=== PATIENT | male | born 1990 | race Caucasian/White ===

== ENCOUNTER 2019-02-18 14:35 | Emergency (ER) | payer MEDICAID ==
[~2019-02-18] VITALS: Ht 167.6 cm; Wt 90.4 kg
[2019-02-18 14:36] VITALS: Ht 167.6 cm; Wt 90.4 kg
[2019-02-18] MEDS ORDERED: SOD CHLORIDE 0.9% 1,000 ML IV STA (17:37)
[2019-02-18] MEDS ORDERED: ONDANSETRON 4 MG INJ IV STA (17:37)
--- NOTE | 2019-02-18 17:50 | ERD ---
ER Documentation Chief Complaint Chief Complaint chest pain today after using inhaling meth yesterday HPI 28-year-old man complains of anxiety, palpitations, chest pain shortly after using methamphetamine yesterday and today prior to arrival. Patient denies pain at rest or pain in the ER but did have some pain prior to arrival he states the pain was sharp nonexertional nonradiating associated with palpitations. He denies cough, no hemoptysis, no fevers or chills, no vomiting or diarrhea. Patient denies psychiatric history and denies suicidal homicidal ideation ROS All systems reviewed and are negative except as per history of present illness. Medications Home Meds No Active Prescriptions or Reported Meds Allergies Allergies: Coded Allergies: No Known Allergy (Unverified , 02/18/19) PMhx/Soc Medical and Surgical Hx: pt denies Medical Hx, pt denies Surgical Hx Hx Alcohol Use: No Hx Substance Use: No Hx Tobacco Use: No Smoking Status: Never smoker FmHx Family History: No diabetes Physical Exam Vitals Vital Signs Date Temp Pulse Resp B/P (MAP) Pulse Ox O2 O2 Flow FiO2 Time Delivery Rate 02/18/19 98.0 94 16 142/93 100 Room Air 19:41 (109) 02/18/19 98.0 96 16 154/90 100 Room Air 18:42 (111) 02/18/19 98.0 95 25 153/100 100 Room Air 17:44 (117) 02/18/19 98.0 106 25 158/103 100 Room Air 16:50 (121) 02/18/19 98.0 115 18 182/92 98 14:36 (122) Physical Exam Const: No acute distress, appears anxious, afebrile, no apparent distress Head: Atraumatic Eyes: Normal Conjunctiva ENT: Normal External Ears, Nose and Mouth. Neck: Full range of motion. No meningismus. Resp: Clear to auscultation bilaterally Cardio: Tachycardic and regular Abd: Soft, non tender, non distended. Normal bowel sounds Skin: No petechiae or rashes Back: No midline or flank tenderness Ext: No cyanosis, or edema Neur: Awake and alert x3, no focal deficits or facial asymmetry, pupils equal round reactive to light Psych: Normal Mood and Affect Result Diagram: 02/18/19 1645 02/18/19 1645 Results 24 hrs Laboratory Tests Test 02/18/19 16:45 White Blood Count 10.8 10^3/ul Red Blood Count 4.94 10^6/ul Hemoglobin 15.4 g/dl Hematocrit 45.9 % Mean Corpuscular Volume 92.9 fl Mean Corpuscular Hemoglobin 31.2 pg Mean Corpuscular Hemoglobin Concent 33.6 g/dl Red Cell Distribution Width 13.2 % Platelet Count 343 10^3/UL Mean Platelet Volume 10.3 fl Immature Granulocytes % 0.600 % Neutrophils % 65.5 % Lymphocytes % 23.1 % Monocytes % 9.3 % Eosinophils % 0.6 % Basophils % 0.9 % Nucleated Red Blood Cells % 0.0 /100WBC Immature Granulocytes # 0.060 10^3/ul Neutrophils # 7.1 10^3/ul Lymphocytes # 2.5 10^3/ul Monocytes # 1.0 10^3/ul Eosinophils # 0.1 10^3/ul Basophils # 0.1 10^3/ul Nucleated Red Blood Cells # 0.0 10^3/ul Sodium Level 142 mmol/L Potassium Level 3.6 mmol/L Chloride Level 100 mmol/L Carbon Dioxide Level 28 mmol/L Anion Gap 14 Blood Urea Nitrogen 10 mg/dl Creatinine 0.61 mg/dl Est Glomerular Filtrat Rate mL/min > 60 mL/min Glucose Level 134 mg/dl Calcium Level 9.6 mg/dl Total Bilirubin 0.4 mg/dl Direct Bilirubin 0.00 mg/dl Indirect Bilirubin 0.4 mg/dl Aspartate Amino Transf (AST/SGOT) 135 IU/L Alanine Aminotransferase (ALT/SGPT) 376 IU/L Alkaline Phosphatase 82 IU/L Troponin I < 0.012 ng/ml Total Protein 9.2 g/dl Albumin 5.0 g/dl Globulin 4.20 g/dl Albumin/Globulin Ratio 1.19 Lipase 61 U/L Current Medications Medications Dose Sig/Nikkie Start Time Status Last (Trade) Ordered Route PRN Stop Time Admin Dose Reason Admin Lorazepam 1 mg ONCE ONCE 02/18/19 DC 02/18/19 (Ativan) IV 18:00 02/18/19 17:52 18:01 Sodium 1,000 ml @ Q1H STAT 02/18/19 DC 02/18/19 Chloride 1,000 mls/hr IV 17:37 02/18/19 17:52 18:36 Ondansetron 4 mg ONCE STAT 02/18/19 DC 02/18/19 HCl (Zofran IV 17:37 02/18/19 17:53 Inj) 17:40 Procedures/[facility] IV line was established patient was placed on rn cardiac cath rhythm strip revealed a sinus tachycardia at 110 bpm with upright P and T waves. Patient was afebrile EKG performed, read by me revealed a sinus tachycardia at 102 bpm, left axis deviation, right ventricular conduction delay QRS duration 112 ms, no concerning ST elevations or depressions noted One AP view of the chest performed, read by me reveals no acute infiltrates, normal mediastinum, sharp costophrenic and cardiac borders, no air under the diaphragm. Otherwise unremarkable chest x-ray. I administered 1 L normal saline IV, Zofran 4 mg IV, lorazepam 1 mg IV x1 CBC and electrolytes were normal, liver function tests showed mild transaminitis, troponin was negative. Patient felt much better after above therapy and tachycardia resolved, patient's blood pressure also improved and he is asymptomatic at this time. Reassurance a nd recommendations were provided to the patient and his mother who was at the bedside. Differential diagnoses considered, included but not limited to acute coronary syndrome, pulmonary embolism, aortic dissection, abdominal aortic aneurysm, sepsis, stroke, meningitis, encephalitis, pneumonia, appendicitis, cholecystitis, bowel obstruction, pyelonephritis, nephrolithiasis, cystitis, as well as metabolic, hematologic, and electrolyte abnormalities. As well as abscess, cellulitis, fractures, and dislocations. Patient feels much better at this time, and vital signs are normal, symptoms have improved. I did give strict instructions to return to the ED if symptoms continue or worsen, patient will otherwise follow-up with primary care physician. Patient understood instructions and agreed to plan. Disclaimer: Inadvertent spelling and grammatical errors are likely due to EHR/dictation software use and do not reflect on the overall quality of patient care. Also, please note that the electronic time recorded on this note does not necessarily reflect the actual time of the patient encounter. Departure Diagnosis: Primary Impression: Methamphetamine abuse Condition: Good VALENTINA PARKINSON MD Feb 18, 2019 17:50
[2019-02-18] MEDS ORDERED: LORAZEPAM 2 MG INJ IV ONE (18:00)
[2019-02-18 19:41] VITALS: BP 142/93; PULSE 94; RESP 16
== END 2019-02-18 19:53 | disposition home or self-care (01) ==
LOC: E/R 14:35
DX: F15.10 Other stimulant abuse, uncomplicated (principal); R07.9 Chest pain, unspecified
CPT/HCPCS: 36415; 71045; 80053; 83690; 84484; 85025; 93005; 96374; 96375; J2060; J2405; J7030; Z7502

== ENCOUNTER → 2019-02-20 | Emergency (ER) | payer MEDICAID ==
[~2019-02-20] VITALS: Ht 162.6 cm; Wt 89.9 kg
[~2019-02-20] MED LIST: KETOROLAC 30 MG INJ IV STA; LORAZEPAM 1 MG TAB PO ONE
[2019-02-20 15:59] VITALS: Ht 162.6 cm; Wt 89.9 kg
--- NOTE | 2019-02-20 20:08 | ERD ---
ER Documentation Chief Complaint Chief Complaint pressure like pain @ left area radiating to left arm since yesterday HPI 28-year-old male presenting for intermittent palpitations as well as right-sided mid back pain, worse with deep inspiration and movement, aching, 7 out of 10, nonradiating. Of note, the patient was here 2 days ago and he used methamphetamines for the first time, having a bad reaction. He denies any medical history. No cough, hemoptysis, dysuria, hematuria, fever or chills. Denies any drug use after 2 days ago. ROS All systems reviewed and are negative except as per history of present illness. Medications Home Meds No Active Prescriptions or Reported Meds Allergies Allergies: Coded Allergies: No Known Allergy (Unverified , 02/18/19) PMhx/Soc Medical and Surgical Hx: pt denies Medical Hx, pt denies Surgical Hx Hx Alcohol Use: Yes Hx Substance Use: Yes (meth) Hx Tobacco Use: No Smoking Status: Never smoker FmHx Family History: No diabetes Physical Exam Vitals Vital Signs Date Temp Pulse Resp B/P (MAP) Pulse Ox O2 O2 Flow FiO2 Time Delivery Rate 02/20/19 98.8 78 19 135/87 100 Room Air 19:00 (103) 02/20/19 98.8 96 19 162/84 97 15:59 (110) Physical Exam Const: No acute distress Head: Atraumatic Eyes: Normal Conjunctiva ENT: Normal External Ears, Nose and Mouth. Neck: Full range of motion. No meningismus. Resp: Clear to auscultation bilaterally Cardio: Regular rate and rhythm, no murmurs. 2+ distal pulses in all 4 extremities Abd: Soft, non tender, non distended. Normal bowel sounds Skin: No petechiae or rashes Back: No midline or flank tenderness. Right thoracic paraspinal muscle tenderness Ext: No cyanosis, or edema Neur: Awake and alert, strength and sensations intact in all 4 extremities. Psych: Normal Mood and Affect Result Diagram: 02/20/19185402/20/191854 Results 24 hrs Laboratory Tests Test 02/20/19 18:55 White Blood Count 9.0 10^3/ul Red Blood Count 4.73 10^6/ul Hemoglobin 14.4 g/dl Hematocrit 44.2 % Mean Corpuscular Volume 93.4 fl Mean Corpuscular Hemoglobin 30.4 pg Mean Corpuscular Hemoglobin Concent 32.6 g/dl Red Cell Distribution Width 12.3 % Platelet Count 297 10^3/UL Mean Platelet Volume 10.1 fl Immature Granulocytes % 0.200 % Neutrophils % 49.5 % Lymphocytes % 30.8 % Monocytes % 10.2 % Eosinophils % 8.4 % Basophils % 0.9 % Nucleated Red Blood Cells % 0.0 /100WBC Immature Granulocytes # 0.020 10^3/ul Neutrophils # 4.5 10^3/ul Lymphocytes # 2.8 10^3/ul Monocytes # 0.9 10^3/ul Eosinophils # 0.8 10^3/ul Basophils # 0.1 10^3/ul Nucleated Red Blood Cells # 0.0 10^3/ul Sodium Level 142 mmol/L Potassium Level 4.0 mmol/L Chloride Level 101 mmol/L Carbon Dioxide Level 31 mmol/L Anion Gap 10 Blood Urea Nitrogen 14 mg/dl Creatinine 0.77 mg/dl Est Glomerular Filtrat Rate mL/min > 60 mL/min Glucose Level 110 mg/dl Calcium Level 9.7 mg/dl Troponin I < 0.012 ng/ml Current Medications Medications Dose Sig/Nikkie Start Time Status Last (Trade) Ordered Route PRN Stop Time Admin Dose Reason Admin Ketorolac 30 mg ONCE STAT 02/20/19 DC Tromethamine IV 20:01 (Toradol) 02/20/19 20:02 Lorazepam 1 mg ONCE ONCE 02/20/19 (Ativan) PO 20:30 02/20/19 20:31 Procedures/[facility] EMERGENT LABS AND DIAGNOSTIC STUDIES: Lab Results above were reviewed and interpreted by me. CBC: no anemia or evidence of infection CMP: No evidence of clinically significant electrolyte abnormality, acidosis, renal failure, hypoglycemia Troponin within normal limits, not indicative of cardiac ischemia 12-lead EKG was interpreted by Vilma Antoine MD: Normal Sinus Rhythm with ventricular rate of 75 beats per minute Incomplete right bundle branch block No acute ST or T wave changes suggestive of acute ischemia or STEMI. Radiology Results as interpreted by Radiology below were reviewed by Moe Antoine MD: Chest x-ray shows no acute abnormalities Initial Nursing notes reviewed. Previous Medical Records requested via the Electronic Health Record. EMERGENCY DEPARTMENT COURSE / MEDICAL DECISION MAKING: Patient is presenting with palpitations, likely secondary to his recent methamphetamine use. Vitals are unremarkable. He also has right-sided thoracic back pain that seems to be musculoskeletal on exam. I doubt pulmonary embolism, pneumothorax, pneumonia, acute surgical abdomen, pyelonephritis. Labs do not show any significant abnormalities. Chest x-ray unremarkable. Doubt acute coronary syndrome or aortic dissection. Patient is stable for discharge with continued outpatient follow-up. He was treated with Toradol and Ativan. Patient's blood pressure was elevated (>120/80) but appears stable without evidence of hypertensive emergency or urgency. The patient was counseled about the risks of hypertension and urged to pursue outpatient monitoring and therapy within a week with their primary care physician. Departure Diagnosis: Primary Impression: Palpitations Additional Impression: Acute right-sided thoracic back pain Condition: Stable Patient Instructions: Back Pain (Acute Or Chronic), Palpitations CHETAN ANTOINE MD Feb 20, 2019 20:08
[2019-02-20 21:35] VITALS: BP 124/81; PULSE 81; RESP 17
== END | disposition home or self-care (01) ==
LOC: E/R 15:50
DX: M54.6 Pain in thoracic spine (principal)
CPT/HCPCS: 36415; 71045; 80048; 84484; 85025; 93005; 96374; J1885; Z7502; Z7610